=== PATIENT | male | born 1995 | race Two or more races ===

== ENCOUNTER 2017-12-19 22:31 | Emergency (ER) | payer MEDICAID ==
[~2017-12-19] VITALS: Ht 177.8 cm; Wt 107.0 kg
[2017-12-20] MEDS ORDERED: IBUPROFEN 800 MG TAB PO ONE (00:45)
[2017-12-20 01:29] VITALS: BP 136/85
== END 2017-12-20 01:35 | disposition home or self-care (01) ==
LOC: ER 22:34
DX: S33.5XXA Sprain of ligaments of lumbar spine, initial encounter (principal); M79.1 Myalgia; M41.9 Scoliosis, unspecified; X50.0XXA Overexertion from strenuous movement or load, initial encounter; Y93.89 Activity, other specified; Y99.0 Civilian activity done for income or pay; Y92.811 Bus as the place of occurrence of the external cause
CPT/HCPCS: 72100